=== PATIENT | female | born 1995 | race Two or more races ===

== ENCOUNTER 2016-10-01 18:18 | Emergency (ER) | payer OTHER ==
[2016-10-01 18:29] VITALS: BP 153/86; PULSE 101; TEMP 98.1; BMI 31.7
[2016-10-01 21:09] LABS: BASOPHIL 0.4 % (0-2.0); EOSINOPHIL 1.9 % (0-4.5); MCH 25.9 pg (25.7-33.7); MCHC 32.4 g/dl (32.0-36.0); MEAN CELL VOLUME 80.1 fl (80-96); MEAN PLT VOLUME 8.6 fl (7.5-11.1); NEUTROPHILS 53.4 % (42.8-82.8); PLATELET COUNT 232 K/MM3 (134-434); RDW 15.9 % (11.6-15.6); WHITE BLOOD COUNT 5.6 K/mm3 (4.0-10.0)
[2016-10-01 21:37] LABS: ALBUMIN 4.1 g/dl (3.4-5.0); ALK PHOS 83 U/L (45-117); ANION GAP 8 (8-16); BILIRUBIN,TOTAL 0.3 mg/dL (0.2-1.0); CO2 27 mmol/L (21-32); CREATININE 0.7 mg/dL (0.55-1.02); GLUCOSE,RANDOM 107 mg/dL (74-106); SGPT/ALT 24 U/L (12-78); TOT PROT 7.9 g/dl (6.4-8.2)
[2016-10-01 21:38] LABS: SGOT/AST 26 U/L (15-37)
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
[2016-10-01] MEDS ORDERED: KETOROLAC TROMETHAMINE 30 MG/1 ML VIAL IVPUSH ONE (23:35)
[2016-10-01] MEDS ORDERED: KETOROLAC TROMETHAMINE 30 MG/1 ML VIAL ONE (23:43)
--- NOTE | 2016-10-02 17:24 | EKG ---
Test Reason : Blood Pressure : / mmHG Vent. Rate : 096 BPM Atrial Rate : 096 BPM P-R Int : 140 ms QRS Dur : 072 ms QT Int : 356 ms P-R-T Axes : 023 043 031 degrees QTc Int : 449 ms NORMAL SINUS RHYTHM NORMAL ECG NO PREVIOUS ECGS AVAILABLE Confirmed by EDWARD NOVAK, DICK ([id number]) on 10/02/2016 5:24:37 PM Referred By: Confirmed By:DICK LEON MD
== END 2016-10-02 00:04 | disposition home or self-care (01) ==
LOC: JER 18:18 → JERFT 18:18 → JER 10-02 00:04
PROC: 3E0333Z Introduction of Anti-inflammatory into Peripheral Vein, Percutaneous Approach (ICD-10-PCS; principal; 2016-10-01)
DX: S20.219A Contusion of unspecified front wall of thorax, initial encounter (principal); V43.52XA Car driver injured in collision with other type car in traffic accident, initial encounter; Y92.414 Local residential or business street as the place of occurrence of the external cause; Y93.89 Activity, other specified; Y99.9 Unspecified external cause status
CPT/HCPCS: 36415; 71250-TC; 74176-TC; 80053; 84703; 85025; 93005; 93010; 99281-25